=== PATIENT | male | born 1990 | race African-American/Black ===

== ENCOUNTER 2021-12-13 09:43 | Emergency (ER) | payer MEDICAID | END 2021-12-13 10:52 | disposition home or self-care (01) | LOC: JD.ED 09:43 | DX: B00.2 Herpesviral gingivostomatitis and pharyngotonsillitis (principal); F17.210 Nicotine dependence, cigarettes, uncomplicated | CPT/HCPCS: 36415; 99283; G0433 ==

== ENCOUNTER 2022-03-09 15:47 | Emergency (ER) | payer MEDICAID | END 2022-03-09 17:22 | disposition home or self-care (01) | LOC: JD.ED 15:47 | DX: N48.89 Other specified disorders of penis (principal); F17.210 Nicotine dependence, cigarettes, uncomplicated; Z79.899 Other long term (current) drug therapy | CPT/HCPCS: 99283 ==

== ENCOUNTER 2022-06-21 11:34 | Emergency (ER) | payer MEDICAID | END 2022-06-21 13:21 | disposition left against medical advice (07) | LOC: JD.ED 11:34 | DX: Z53.21 Procedure and treatment not carried out due to patient leaving prior to being seen by health care provider (principal) ==